=== PATIENT | male | born 1940 | race Caucasian/White ===

== ENCOUNTER 2016-07-26 16:48 | Inpatient (IN) | payer MEDICARE, BC ==
--- NOTE | ~2016-07-26 | DS ---
Unit #: [id number] #: [id number] Patient: NITO LOPEZ [id number] [address] [id number] [facility]. [place], [place] [address] [id number] MR#: [id number] NAME: NITO LOPEZ ROOM: 333 Age: 76 Sex: M Admission Date: 07/26/2016 : 1940 Discharge Date: 07/29/2016 Attending Physician: Rosa Kenny M.D. Primary Care Physician: Vonda Sheriff M.D. DISCHARGE SUMMARY DIAGNOSES ON ADMISSION 1. Acute exacerbation of COPD. 2. Pneumonia. DIAGNOSES ON DISCHARGE 1. Exacerbation of chronic obstructive pulmonary disease, improved. 2. Community-acquired pneumonia. 3. Acute respiratory failure, improved. 4. History of chronic respiratory failure on home oxygen. 5. Chronic atrial fibrillation. 6. Anemia. 7. Coronary artery disease, status post stent. 8. Peptic ulcer disease. CONSULTATION Dr. Tran in pulmonary consultation. DIAGNOSTIC STUDIES LABORATORY: Patient's creatinine was 1, sodium 140, potassium is 5.1, and calcium is 8.4. INR is 1.4. WBC was 9.6, hemoglobin 11.2 and platelet count 364. His blood culture revealed one out of two sets growing coag.-negative Staphylococcus, which is probably skin contaminant. Procalcitonin level was 0.11. IMAGING: Chest x-ray revealed persistent infiltrate in the lateral portion of right middle lobe. HOSPITAL COURSE This 76-year-old male was admitted to [facility] with shortness of air. Details are as per admission H and P. ACUTE EXACERBATION OF COPD: Patient was treated with IV Solu-Medrol. Patient has responded well to treatment and shortness of air has improved. PNEUMONIA: Patient was treated with IV antibiotics. He is afebrile. CHRONIC ATRIAL FIBRILLATION: Patient's INR was 3.4. It is 1.4 today. I have offered patient Lovenox, he is afraid of bleeding and just wants to continue his home dose of Coumadin. Today, patient is comfortable. He is not in acute distress. PHYSICAL EXAMINATION VITAL SIGNS: Reveal temperature of 98 degrees, pulse is 74 per minute, Unit #: [id number] #: [id number] Patient: NITO LOPEZ respiratory rate is 16 per minute, and blood pressure is 123/89. HEENT: Reveals no conjunctival congestion. Sclerae are nonicteric. NECK: Supple. Trachea is central. RESPIRATORY: Revealed breath sounds equal bilaterally. There are no wheezes or crackles. HEART: Regular rate and rhythm. S1 and S2. ABDOMEN: Soft and nontender. Bowel sounds are present in all four quadrants. SKIN: Warm and dry. PSYCH: Patient is alert to person, place, and time. RECOMMENDATIONS ON DISCHARGE 1. Condition is stable. 2. Activities as tolerated. DISCHARGE MEDICATIONS 1. Flomax 0.4 mg p.o. q.h.s. 2. Coumadin 5 mg p.o. daily. 3. Neurontin 300 mg p.o. b.i.d. 4. Metformin 1000 mg b.i.d. 5. Lipitor 80 mg p.o. q.h.s. 6. Coreg 3.125 mg p.o. b.i.d. 7. Senokot S 1 tablet p.o. b.i.d. 8. Lasix 40 mg p.o. daily. 9. Lovastatin 40 mg q.h.s. 10. Lisinopril 5 mg p.o. daily. 11. Plavix 75 mg p.o. daily. 12. Spironolactone 12.5 mg p.o. daily. 13. Protonix 40 mg p.o. daily. 14. Potassium 20 mEq p.o. daily. 15. Prednisone and antibiotics will be as per Dr. Tran. 16. Patient's hemoglobin A1c was pending. Patient does not want to use insulin. His Accu-Cheks were elevated here in the hospital. Therefore, I will add glipizide 5 mg p.o. daily and have him follow up with his primary care physician closely for close followup. FOLLOWUP 1. Patient is advised to follow up with primary care physician in one week and have a CBC and BMP done. 2. Patient is advised to follow up with Dr. Tran as recommended. 3. Patient is advised to have Accu-Cheks a.c. and q.h.s. and call primary care physician if less than 80 or greater than 300. The plan was discussed in detail with patient who showed complete understanding. Please make note that patient's hemoglobin A1c was done and is pending and patient's primary care physician should follow up on that. We will arrange home health regarding home safety assessment and nursing. Patient was advised to call primary care physician or go to ER if his condition changes. Dictated by... Rosa Kenny M.D. Unit #: [id number] #: [id number] Patient: NITO LOPEZ TD: 07/29/2016 11:29 JOB #: [id number] DISCHARGE SUMMARY X Rosa Kenny MD X DISCHARGE SUMMARY
--- NOTE | ~2016-07-26 | CT57 ---
[facility] A Service of [facility] & [facility] RADIOLOGY TEXT RESULTS PATIENT: NITO LOPEZ LOCATION: [facility] 333-01 : 39 UNIT #: [id number] AGE: [address]: Rosa Kenny MD SEX: M ORDER DR: [id number] [facility] [address] [facility]. [place], [place] [address] [id number] I MR#: [id number] Acc #: [id number] NAME: NITO LOPEZ : 1940 SEX: M STUDY DATE/TIME: 07/29/2016 16:48 [facility] RO[facility]: [facility] STUDY DESCRIPTION: CT Chest Wo Cont Attending Physician: Rosa Kenny M.D. Ordering Physician: Rosa Kenny M.D. Primary Care Physician: Vonda Sheriff M.D. MEDICAL IMAGING REPORT This report is preliminary unless electronic signature is present EXAM CT chest without contrast HISTORY Pneumonia, shortness of air and cough for 1 week. Pulmonary infiltrates on chest x-ray. This CT exam was performed with one or more of the following radiation dose reduction techniques: automatic exposure control, adjustment of mA and/or kV according to patient size, and iterative reconstruction. FINDINGS CT chest without contrast demonstrates moderate multifocal patchy and nodular subsegmental infiltrates in the anteromedial left upper lobe, and in the inferolateral right upper lobe, in the right middle lobe and lateral right lower lobe, and smaller additional patchy nodular infiltrate in the posterior right lower lobe and in the superior segment left lower lobe. Minimal nodular density in the anterior right lung apex. These findings could all be secondary to multifocal pneumonia or a combination of pneumonia and atelectasis. Underlying pulmonary nodules in 1 or multiple areas of patchy density are not excluded. Correlation with the patient's history and symptoms is recommended and short-term followup CT chest in 1-2 months is recommended. If these findings do not resolve in the short term, further characterization with PET CT may be warranted. There is residual mucous or secretions in the right mainstem bronchus. Mild bronchiectasis in the right lower lobe. No adenopathy. Normal caliber thoracic aorta. No pericardial thickening or effusion. IMPRESSION 1. There are multifocal patchy dense areas of subsegmental infiltrate in both lungs, more extensive in the inferior right upper lobe, in the lateral right lower lobe and in the right middle lobe corresponding to findings on recent chest x-ray 07/26/2016 and 07/28/2016. There [facility] A Service of [facility] RADIOLOGY TEXT RESULTS PATIENT: NITO LOPZE LOCATION: [facility] 333-01 : 39 UNIT #: [id number] AGE: [address]: Rosa Kenny MD SEX: M ORDER DR: are additional smaller patchy subsegmental densities in the lateral right upper lobe, in the anteromedial left upper lobe and smaller nodules in the right lung apex, posterior right lower lobe and superior segment left lower lobe. These findings could all be secondary to multifocal pneumonia or a combination of pneumonia and atelectasis. Underlying pulmonary nodules or masses in 1 or more of these locations, however are not excluded and correlation to the patient's history and symptoms is recommended. Short-term followup chest CT in 1-2 months is suggested and if the findings do not resolve, further characterization with PET CT would be warranted. 2. No pleural effusions. No adenopathy. Dictated by... Suresh Knowles M.D. THIS IS AN ELECTRONICALLY VERIFIED REPORT Suresh Knowles M.D. at 07/30/2016 11:24 PM DONNA/maurice TD: 07/30/2016 06:13 JOB #: [id number] MEDICAL IMAGING REPORT COPY
--- NOTE | ~2016-07-26 | HP ---
Unit #: [id number] #: [id number] Patient: NITO LOPEZ [id number] [address] [address] [id number] I MR#: [id number] NAME: NITO LOPEZ ROOM: 333 Age: 76 Sex: M Admission Date: 07/26/2016 : 1940 Attending Physician: Anitra Cardenas M.D. Primary Care Physician: Vonda Sheriff M.D. HISTORY AND PHYSICAL DIAGNOSIS ON ADMISSION Pneumonia. HISTORY OF PRESENT ILLNESS A 76-year-old patient is admitted at the request of Dr. Vonda Sheriff for pneumonia. As per patient, he was in his usual state of health and was doing well up until one week ago when he developed a cough. Patient stated that the cough gradually worsened and was associated with yellow sputum. The patient stated that his condition was not improving, so he decided to see Dr. Sheriff. Patient denied having any fever but complained of shortness of air on exertion. As per the patient, when he saw Dr. Vonda Sheriff, they did a chest x-ray, and he had pneumonia. The patient's pulse oximetry was 87% on room air as per Dr. Sheriff. Therefore, it was requested to admit patient directly in the hospital. Currently, patient is comfortable and is not having any distress. He is complaining of weakness. He denies chest pain or tightness, but he is complaining of wheezing. There is no history of recent weight loss or loss of appetite. Patient is complaining of generalized weakness. There is no history of blood in the urine or stools. The rest of the review of systems is negative. PAST MEDICAL HISTORY 1. Hypertension. 2. Chronic obstructive pulmonary disease. 3. Type 2 diabetes mellitus. 4. Benign prostatic hypertrophy. 5. Ischemic cardiomyopathy. 6. History of upper GI bleeding and had an EGD done in November 2015 which revealed mild prepyloric antral erythema, otherwise normal. PAST SURGICAL HISTORY 1. Appendectomy. 2. Foot surgery. 3. Hand surgery. SOCIAL HISTORY Patient states that he quit smoking last year. He denies drinking. He lives with his cats. FAMILY HISTORY Coronary artery disease. ALLERGIES Unit #: [id number] #: [id number] Patient: NITO LOPEZ No known drug allergies. HOME MEDICATIONS Patient states that he does not remember the names of his home medications. PHYSICAL EXAMINATION GENERAL: Patient is sitting comfortable in bed not in any obvious acute distress. VITAL SIGNS: Pulse is currently 88 per minute, respiratory rate is 14 per minute, and pulse oximetry was 87% on room air. HEENT: No conjunctival congestion. Sclerae are nonicteric. NECK: Supple. Trachea is central. RESPIRATORY: Decreased breath sounds bilaterally. There are a few crackles present. HEART: Regular rate and rhythm, S1 and S2. ABDOMEN: Soft and nontender. Bowel sounds are present in all four quadrants. PSYCHIATRIC: Patient is alert to person, place, and time. NEUROLOGICAL: Strength is 5 over 5 bilaterally. SKIN: Warm and dry. DIAGNOSTIC STUDIES LABORATORY: Not done yet. IMAGING: Chest x-ray as per Dr. Sheriff revealed pneumonia. ASSESSMENT AND PLAN A 76-year-old male was directly admitted at the request of Dr. Sheriff. 1. Pneumonia. We will treat patient with IV antibiotics. The patient states that he follows up with Dr. Tran and is very adamant to see him. Therefore, we will put him in consult. 2. Acute exacerbation of chronic obstructive pulmonary disease. I will start patient on Solu-Medrol. 3. History of coronary artery disease, status post stent. Will continue home medications. 4. History of chronic atrial fibrillation. Patient is on Coumadin at home. We will check patient's INR. 5. Type 2 diabetes mellitus. Will do Accu-Cheks. 6. Hyperlipidemia. Will continue home medications. The plan was discussed in detail with patient who showed complete understanding. Dictated by Saranya Bedoya TD: 07/26/2016 22:22 JOB #: [id number] CC: Aditya Tran M.D. Unit #: [id number] #: [id number] Patient: NITO LOPEZ HISTORY AND PHYSICAL X Rosa Kenny MD HISTORY AND PHYSICAL
--- NOTE | ~2016-07-26 | EKG ---
PATIENT: NITO LOPEZ UNIT #: [id number] Ventricular Rate: 86 BPM Atrial Rate: 86 BPM P-R Interval: 132 ms QRS Duration: 138 ms Q-T Interval: 394 ms QTC Calculation(Bezet): 471 ms P Gulliver: 64 degrees Calculated R Gulliver: 121 degrees Calculated T Gulliver: 53 degrees Diagnosis Line: Normal sinus rhythm Diagnosis Line: Right bundle branch block Diagnosis Line: Left posterior fascicular block Diagnosis Line: Bifascicular block Diagnosis Line: Possible Inferior infarct , age undetermined Diagnosis Line: Abnormal ECG Diagnosis Line: When compared with ECG of 19-DEC-2015 17:57, Diagnosis Line: Nonspecific T wave abnormality no longer evident Diagnosis Line: in Lateral leads Diagnosis Line: Confirmed by NOMR BEAUCHAMP MD ([id number]) on Diagnosis Line: 07/27/2016 4:12:28 PM INTERPRETING MD: NITO WHITE
--- NOTE | ~2016-07-26 | CO ---
Unit #: [id number] #: [id number] Patient: NITO LOPEZ [id number] [address] [address] [id number] I MR#: [id number] NAME: NITO LOPEZ ROOM: 333 Age: 76 Sex: M Admission Date: 07/26/2016 : 1940 Attending Physician: Anitra Cardenas M.D. Primary Care Physician: Vonda Sheriff M.D. Consultation Date: 07/26/2016 CONSULTATION REPORT REASON FOR CONSULT Pneumonia. HISTORY OF PRESENT ILLNESS This is a 76-year-old male with a past medical history significant for ischemic cardiomyopathy with ejection fraction of 35% to 40%, hypertension, COPD, diabetes, and benign prostatic hypertrophy who presented to the emergency room after he was told by his primary care physician to do so. The patient stated that he was coughing for the last few days with right sided discomfort. He denied any fever but he had some chills. His cough was productive of dark sputum. He denied any nausea, vomiting or diarrhea. The patient is on oxygen as needed. REVIEW OF SYSTEMS Twelve point review of systems were obtained and were negative except for what was mentioned in the HPI. PAST MEDICAL HISTORY 1. Ischemic cardiomyopathy with ejection fraction of 35% to 40%. 2. Hypertension. 3. COPD. 4. Diabetes. 5. Benign prostatic hypertrophy. PAST SURGICAL HISTORY 1. Appendectomy. 2. Foot surgery. 3. Hand surgery. SOCIAL HISTORY The patient lives with three cats. No or kids at home. He stopped smoking last year and he used to smoke less than a pack per day for many years. No history of alcohol or drug abuse. FAMILY HISTORY Coronary artery disease. ALLERGIES No known drug allergies. HOME MEDICATIONS Unit #: [id number] #: [id number] Patient: NITO LOPEZ 1. Lasix. 2. Lisinopril. 3. Aldactone. 4. Plavix. 5. Coreg. 6. Coumadin. 7. Protonix. 8. Lipitor. 9. Flomax. PHYSICAL EXAMINATION GENERAL: The patient is in no acute distress. VITAL SIGNS: Heart rate is 69, respiratory rate 23, O2 saturation 98% on 3 L nasal cannula. HEENT: Atraumatic, normocephalic. PERRLA, EOMI. NECK: Supple. No JVD, no lymphadenopathy. CHEST: Right sided coarse rhonchi. HEART: S1, S2. No murmur, gallops or rubs. ABDOMEN: Soft, nontender. Bowel sounds positive. No hepatosplenomegaly. EXTREMITIES: No edema or cyanosis. SKIN: No rashes. OVENS SUPERVISOR: Awake, alert, oriented x3. No focal motor/sensory deficits. DIAGNOSTIC STUDIES LABORATORY: Creatinine 1.1, chloride 98, white blood count 10.1, hemoglobin 12.8, platelets 365. IMAGING: Chest x-ray is consistent with right sided pneumonia. ASSESSMENT 1. Acute hypoxic respiratory failure. 2. Community-acquired pneumonia. 3. Ischemic cardiomyopathy with ejection fraction of 35%. 4. Hypertension. 5. Chronic obstructive pulmonary disease. 6. Diabetes. 7. Benign prostatic hypertrophy. PLAN 1. Will continue patient on oxygen and titrate as tolerated. 2. Rocephin and azithromycin. Will need to follow up closely to rule out any empyema progression. 3. Bronchodilator and mucolytics. 4. Low dose IV steroids. 5. Physical therapy evaluation. Dictated by... Saranya Olivarez TD: 07/27/2016 07:40 JOB #: [id number] Unit #: [id number] #: [id number] Patient: NITO LOPEZ CONSULTATION REPORT X ADAN DEL CID MD CONSULTATION REPORT
--- NOTE | ~2016-07-26 | CR63 ---
[facility] A Service of [facility] & [facility] RADIOLOGY TEXT RESULTS PATIENT: NITO LOPEZ LOCATION: [facility] 333- : 39 UNIT #: [id number] AGE: [address]: Rosa Kenny MD SEX: M ORDER DR: [id number] [facility] [address]. [place], [place] [address] [id number] I MR#: [id number] Acc #: [id number] NAME: NITO LOPEZ : 1940 SEX: M STUDY DATE/TIME: 07/28/2016 7:59 UNIT: [address] ROOM: [facility] STUDY DESCRIPTION: CR Chest 2 View Attending Physician: Rosa Kenny M.D. Ordering Physician: Les Cintron M.D. Primary Care Physician: Vonda Sheriff M.D. MEDICAL IMAGING REPORT This report is preliminary unless electronic signature is present EXAM Two-view chest INDICATION Cough and chest congestion for the past week. PROCEDURE Frontal and lateral views of the chest COMPARISON 07/27/2015 FINDINGS Persistent infiltrate localizing to the lateral portion of the right middle lobe. No new dense consolidation. No pneumothorax or pleural fluid. IMPRESSION No significant change from 07/26/2016 with persistent right middle lobe infiltrate. Dictated by... Reynaldo Davis M.D. THIS IS AN ELECTRONICALLY VERIFIED REPORT Reynaldo Davis M.D. at 07/29/2016 6:56 AM Lashaun TD: 07/28/2016 11:52 JOB #: [id number] MEDICAL IMAGING REPORT COPY
[~2016-07-26 16:48] MED LIST: ALBUTEROL INH; ALBUTEROL17 GM INH; ALDACTONE25 MG PO; ALTOPREV40 MG PO; AUGMENTIN875 MG PO; CLOPIDOGREL75 MG PO; COMBIVENT IH; COMBIVENT INH14.7 GM; COMBIVENT14.7 GM INH; COREG3.125 MG PO; COUMADIN PO; COUMADIN4 MG PO; COUMADIN5 MG; COUMADIN5 MG PO; DOXYCYCLINE MO100 MG PO; FLOMAX0.4 M1; FLOMAX0.4 M1 PO; FLOMAX0.4 M1 PO/SL; FUROSEMIDE40 MG PO; GABAPENTIN300 M2 PO; GLUCOPHAGE500 M1 PO; JANUVIA PO; K-DUR20 ME1 PO; KEFLEX500 MG PO; LASIX20 MG PO; LIPITOR PO; LISINOPRIL5 MG PO; METFORMIN HCL500 M1 PO; PANTOPRAZOLE SO40 MG PO; POTASSIUM CHLO20 ME1 PO; PREDNISONE PO; PROSCAR5 MG PO; SYMBICORT INH; UNKNOWN DIABETIC MED; VITAMIN B-1000 MCG/1 INJ; [UNRECOGNIZED DRUG - OTHER] MC; [UNRECOGNIZED DRUG - REMARK]
[2016-07-26] MEDS ORDERED: ATORVASTATIN CA80 MG PO (18:44)
[2016-07-26 18:45] LABS: HEMOGLOBIN 12.8 gm/dL (13.0-16.0); MEAN CELL VOLUME 83.4 FL (83-96); MEAN CORPUSCULAR HEMOGLOBIN 26.8 PG (28-34); MEAN CORPUSCULAR HGB CONC 32.1 g/dL (30-36); MEAN PLATELET VOLUME 7.8 FL (6.5-11.5); RED BLOOD COUNT 4.8 X10e (3.90-5.60); RED CELL DISTRIBUTION WIDTH 16.7 % (11.0-15.5); WHITE BLOOD COUNT 10.1 X10e3 (4.0-10.5)
[2016-07-26] MEDS ORDERED: LISINOPRIL5 MG PO (18:45)
[2016-07-26] MEDS ORDERED: SENNA S TABLET1 TAB PO (18:45)
[2016-07-26] MEDS ORDERED: ALDACTONE25 MG PO (18:46)
[2016-07-26 19:00] LABS: INR 3.3
[2016-07-26 19:06] LABS: ALBUMIN SERUM 2.8 g/dL (3.5-5.0); ALKALINE PHOSPHATASE 75 U/L (32-92); ALT (SGPT) 16 U/L (10-40); AST (SGOT) 16 U/L (10-42); BILIRUBIN,TOTAL 0.6 mg/dL (0.2-2.0); BLOOD UREA NITROGEN 15 mg/dL (9-23); BUN/CREATININE RATIO 13.63; CALCIUM SERUM 8.3 mg/dL (8.4-10.2); CARBON DIOXIDE 31 mmol/L (22-31); CHLORIDE 98 mmol/L (100-111); CREATININE SERUM 1.1 mg/dL (0.6-1.4); GLOM FILT RATE Estimated ABOVE60 mL/min (>60); GLUCOSE FASTING 206 mg/dL (70-110); POTASSIUM 4.8 mmol/L (3.5-5.1); PROTEIN TOTAL SERUM 7.3 g/dL (6.0-8.3); SODIUM 133 mmol/L (135-145)
[2016-07-26 19:29] LABS: PROTHROMBIN TIME (PATIENT) 36.8 SECONDS (9.6-11.5)
[2016-07-27 05:50] LABS: HEMATOCRIT 38.5 % (38.0-50.0); HEMOGLOBIN 11.9 gm/dL (13.0-16.0); MEAN CELL VOLUME 84.1 FL (83-96); MEAN CORPUSCULAR HGB CONC 30.9 g/dL (30-36); MEAN PLATELET VOLUME 7.7 FL (6.5-11.5); RED BLOOD COUNT 4.58 X10e (3.90-5.60); WHITE BLOOD COUNT 7.1 X10e3 (4.0-10.5)
[2016-07-27 06:24] LABS: INR 3.4; PROTHROMBIN TIME (PATIENT) 37.3 SECONDS (9.6-11.5)
[2016-07-27 06:46] LABS: BLOOD UREA NITROGEN 18 mg/dL (9-23); CALCIUM SERUM 8.1 mg/dL (8.4-10.2); CARBON DIOXIDE 29 mmol/L (22-31); CHLORIDE 98 mmol/L (100-111); CREATININE SERUM 0.8 mg/dL (0.6-1.4); GLOM FILT RATE Estimated ABOVE60 mL/min (>60); GLUCOSE FASTING 313 mg/dL (70-110); POTASSIUM 4.9 mmol/L (3.5-5.1); SODIUM 135 mmol/L (135-145)
[2016-07-28 06:22] LABS: HEMATOCRIT 35.6 % (38.0-50.0); HEMOGLOBIN 11.2 gm/dL (13.0-16.0); MEAN CELL VOLUME 83.4 FL (83-96); MEAN CORPUSCULAR HEMOGLOBIN 26.2 PG (28-34); MEAN CORPUSCULAR HGB CONC 31.4 g/dL (30-36); MEAN PLATELET VOLUME 7.9 FL (6.5-11.5); RED BLOOD COUNT 4.28 X10e (3.90-5.60); RED CELL DISTRIBUTION WIDTH 16.8 % (11.0-15.5); WHITE BLOOD COUNT 9.6 X10e3 (4.0-10.5)
[2016-07-28 06:32] LABS: INR 2.3; PROTHROMBIN TIME (PATIENT) 24.8 SECONDS (9.6-11.5)
[2016-07-28 07:42] LABS: BLOOD UREA NITROGEN 27 mg/dL (9-23); CALCIUM SERUM 8.4 mg/dL (8.4-10.2); CARBON DIOXIDE 30 mmol/L (22-31); CHLORIDE 98 mmol/L (100-111); GLOM FILT RATE Estimated ABOVE60 mL/min (>60); GLUCOSE FASTING 336 mg/dL (70-110); POTASSIUM 5.1 mmol/L (3.5-5.1); SODIUM 140 mmol/L (135-145)
[2016-07-29 06:09] LABS: INR 1.4
[2016-07-30 06:26] LABS: INR 1.1; PROTHROMBIN TIME (PATIENT) 12.1 SECONDS (9.6-11.5)
[2016-07-30] MEDS ORDERED: PREDNISONE (12:37)
[2016-07-30] MEDS ORDERED: LEVAQUIN750 M1 PO (12:37)
[2016-07-30] MEDS ORDERED: GLUCOTROL PO (12:39)
== END 2016-07-30 15:18 | disposition home health service (06) | DRG 189 ==
LOC: C3A PCU 16:48
PROVIDERS: Internal Medicine
DX: J96.21 Acute and chronic respiratory failure with hypoxia (principal); J18.9 Pneumonia, unspecified organism; I48.2 Chronic atrial fibrillation; D64.9 Anemia, unspecified; E11.9 Type 2 diabetes mellitus without complications; J44.1 Chronic obstructive pulmonary disease with (acute) exacerbation; K27.9 Peptic ulcer, site unspecified, unspecified as acute or chronic, without hemorrhage or perforation; E78.5 Hyperlipidemia, unspecified; I25.10 Atherosclerotic heart disease of native coronary artery without angina pectoris; Z79.01 Long term (current) use of anticoagulants; N40.0 Benign prostatic hyperplasia without lower urinary tract symptoms; I25.5 Ischemic cardiomyopathy
CPT/HCPCS: 71020; 71250; 80048; 80053; 82308; 82947; 83036; 84443; 85027; 85610; 85730; 87040; 87449; 87899; 93005; 94640; 94760; J0456; J0696; J1815; J2920; J2930; J3370

== ENCOUNTER → 2016-08-23 | Outpatient (CLI) | payer MEDICARE, BC ==
[~2016-08-23] MED LIST changes: +ATORVASTATIN CA80 MG PO; +GLUCOTROL PO; +LEVAQUIN750 M1 PO; +PREDNISONE; +SENNA S TABLET1 TAB PO
--- NOTE | ~2016-08-23 | CR71 ---
[facility] A Service of [facility] & [facility] RADIOLOGY TEXT RESULTS PATIENT: NITO LOPEZ LOCATION: [facility] : 39 UNIT #: [id number] AGE: [address]: Aditya Tran MD SEX: M ORDER DR: [id number] [facility] [address] [place], [place] [address] [id number] MR#: [id number] Acc #: [id number] NAME: NITO LOPEZ : 1940 SEX: M STUDY DATE/TIME: 08/23/2016 10:56 UNIT: [facility] ROOM: STUDY DESCRIPTION: CR Chest Single View Attending Physician: Aditya Tran M.D. Referring Physician: Aditya Tran M.D. Ordering Physician: Aditya Tran M.D. Primary Care Physician: Vonda Sheriff M.D. MEDICAL IMAGING REPORT This report is preliminary unless electronic signature is present EXAM PA chest radiograph date of study 08/23 COMPARISON 07/28/2016. HISTORY History supplied is COPD and shortness of breath for 3 weeks. Recent diagnosis of pneumonia. This single view is obtained. The heart size is normal. Left lung is clear. The right-sided pulmonary infiltrate is improving but has not cleared completely. CONCLUSION Decrease in the right-sided pulmonary infiltrate compared with the previous study. Suggest follow up radiographs until complete clearing. Dictated by... Royce Zhu M.D. THIS IS AN ELECTRONICALLY VERIFIED REPORT Royce Zhu M.D. at 08/23/2016 5:04 PM Hayden TD: 08/23/2016 12:49 JOB #: [id number] MEDICAL IMAGING REPORT Page 1 of 1 COPY
== END | disposition home or self-care (01) ==
LOC: CRC 09:30
DX: J44.9 Chronic obstructive pulmonary disease, unspecified (principal); R91.8 Other nonspecific abnormal finding of lung field
CPT/HCPCS: 71010; 94060; 94726; 94729